=== PATIENT | female | born 1955 ===

== ENCOUNTER → 2023-12-22 02:26 | Outpatient (CLI) | payer MEDICARE, BC, SELFPAY ==
--- NOTE | 2023-12-22 14:35 | DI.RAD_ITS ---
Exam(s) XR FOOT LT COMPLETE EXAM: XR FOOT LT COMPLETE CLINICAL HISTORY: Left Great toe pain,,lt foot pain,m79.675,m79.672. TECHNIQUE: 2D digital imaging was performed. Three views. COMPARISON: No exams were available for comparison FINDINGS: BONES: No acute fracture is present. No bony destructive lesion is seen. Tiny plantar calcaneal spu r. Ossicles adjacent to navicular, distal calcaneus and base of 5th metatarsal. JOINTS: No dislocation present. Mild narrowing of the 1st MTP joint. Mild periarticular spurring. SOFT TISSUE: Normal. IMPRESSION: Mild degenerative changes. DATA REPOSITORY: RADIATION DOSE DELIVERED:
--- NOTE | 2023-12-22 14:35 | DI.RAD_ITS ---
Exam(s) XR FOOT RT COMPLETE EXAM: XR FOOT RT COMPLETE CLINICAL HISTORY: Right great toe pain,rt foot pain,m79.674,m79.671. TECHNIQUE: 2D digital imaging was performed. Three views. COMPARISON: CR XR FOOT LT COMPLETE from 12/22/2023 FINDINGS: BONES: No acute fracture is present. No bony destructive lesion is seen. Plantar calcaneal spur. Os sicles adjacent to cuboid and navicular. JOINTS: No dislocation present. Moderate narrowing of 1st MTP joint. Mild periarticular spurring. SOFT TISSUE: Normal. IMPRESSION: Moderate degenerative changes at the 1st MTP joint DATA REPOSITORY: RADIATION DOSE DELIVERED:
== END ==
PROVIDERS: PCP Internal Medicine; Visit Provider Podiatrist
DX: M79.672 Pain in left foot (principal); M79.675 Pain in left toe(s); M79.671 Pain in right foot; M79.674 Pain in right toe(s)
CPT/HCPCS: 17110; 20600; 73630